=== PATIENT | male | born 1945 | race Caucasian/White ===

== ENCOUNTER 2016-12-13 16:22 | Emergency (ER) | payer OTHER ==
[2016-12-13 16:32] VITALS: RESP 16
[2016-12-13] MEDS ORDERED: NS 1,000 ML IV ONE (16:42)
[2016-12-13] MEDS ORDERED: HYDROmorphONE/DILAUDID 1 MG/ML SYR IVP ONE (16:42)
--- NOTE | 2016-12-13 16:48 | EDPHY ---
H & P Stated Complaint: mechanical fall from standing onto right lower back/flank, pleuritic pain HPI/ROS: Chief complaint: Fall with right-sided back injury History of present illness: This is a 71-year-old male who presents to the emergency department for evaluation after sustaining a mechanical fall injuring the right side of his back. Patient was helping his son work on a deck when he stepped into a hole and fell backwards striking his right midback against a concrete block. He describes severe pain on the right side of the back, worse with touching the region, moving and taking a deep breath. Patient denies associated signs or symptoms including no open wounds. He denies other associated signs or symptoms including no report of trauma to other parts of the body including the head, neck, any trauma along the spine, abdomen or extremities. Review of systems: A 10 point review of systems was obtained and other than described above was negative - Personal History Current Tetanus/Diphtheria Vaccine: Unsure Current Tetanus Diphtheria and Acellular Pertussis (TDAP): Unsure - Medical/Surgical History Hx Asthma: No Hx Chronic Respiratory Disease: No Hx Diabetes: Yes Hx Cardiac Disease: No Hx Renal Disease: No Hx Cirrhosis: No Hx Alcoholism: No Hx HIV/AIDS: No Hx Splenectomy or Spleen Trauma: No Other PMH: diabetic - Social History Smoking Status: Never smoked - Physical Exam Exam: General Appearance: Alert, appears uncomfortable Eyes: PERRLA Respiratory: Lungs clear to auscultation bilaterally Cardiac: Regular rate and rhythm. Gastrointestinal: Bowel sounds normal. Abdomen soft, nondistended, nontender. Neurological: Alert and oriented x4. Strength and sensation intact and symmetrical. Skin: No lesions noted consistent with acute trauma Musculoskeletal: Head is normocephalic, atraumatic. The spine is nontender to palpation along its entire length. No crepitus, bony deformity or step-off. There is tenderness along the right, posterior lower chest wall and right flank region. Patient moving all extremities without difficulty. Constitutional: Initial Vital Signs Temperature (C) 36.4 C 12/13/16 16:30 Heart Rate 78 12/13/16 16:30 Respiratory Rate 16 12/13/16 16:30 Blood Pressure 174/93 H 12/13/16 16:30 O2 Sat (%) 94 12/13/16 16:30 O2 Delivery Mode Room Air Allergies/Adverse Reactions: No Known Allergies Allergy (Unverified 12/13/16 16:30) Home Medications: Medication Instructions Recorded Actos 12/13/16 Hydrocodone/APAP [Peterman 1 tab PO Q6H #8 tab 12/13/16 (*)] Metformin HCl 12/13/16 Medical Decision Making - Diagnostics Imaging Results: Imaging Impressions Abdomen CT 12/13/16 16:42 Impression: Nothing acute. Findings and recommendations discussed with MALU Rivera at 1738 hour, 2016. Final report concurs with initial preliminary interpretation. Chest X-Ray 12/13/16 16:42 Impression: Diffuse interstitial thickening throughout both lungs. Mild cardiac enlargement.. Imaging: Discussed imaging studies w/ call center recruiter Radiologist, I viewed and interpreted images myself ED Course/Re-evaluation: Patient is discussed with my secondary supervising physician Dr. Winston Morelos. Patient presents to the emergency department after sustaining a mechanical trip and fall striking the right back of his chest wall and right flank region. Patient is nontoxic. Vital signs are stable. He is not on blood thinners. Chest x-ray and CT scan of the abdomen pelvis are negative. Likely a soft tissue injury. Patient will be discharged home and home care is discussed including pain management. He is further asked with hold his metformin given the IV contrast he received today for the next 2 days. He is follow up with his primary care doctor for recheck. Return precautions are given. Differential Diagnosis: Included but not limited to contusion, hematoma, bony fracture, intrathoracic injury including pneumo or hemothorax, retroperitoneal injury, intra-abdominal injury - Data Points Laboratory Results: 12/13/16 12/13/16 17:50 16:51 POC Hgb 15.6 gm/dL gm/dL (14.5-17.3) POC Hct 46 % % (42.8-50.6) POC Sodium 141 mEq/L mEq/L (134-144) POC Potassium 4.0 mEq/L mEq/L (3.3-5.0) POC Chloride 99 mEq/L mEq/L (96-108) POC BUN 28 mg/dL H mg/dL (7-23) POC Creatinine 1.0 mg/dL mg/dL (0.8-1.5) POC Glucose 163 mg/dL H mg/dL (70-100) Urine Color YELLOW Urine Appearance CLEAR Urine pH 6.0 (5.0-7.5) Ur Specific [place] 1.029 (1.002-1.030) Urine Protein NEGATIVE (NEGATIVE) Urine Ketones NEGATIVE (NEGATIVE) Urine Blood NEGATIVE (NEGATIVE) Urine Nitrate NEGATIVE (NEGATIVE) Urine Bilirubin NEGATIVE (NEGATIVE) Urine Urobilinogen NEGATIVE EU EU (0.2-1.0) Ur Leukocyte Esterase NEGATIVE (NEGATIVE) Urine Glucose NEGATIVE (NEGATIVE) Medications Given: Discontinued Medications Hydromorphone HCl (Dilaudid) 0.5 mg IVP EDNOW ONE Stop: 12/13/16 16:43 Last Admin: 12/13/16 17:03 Dose: 0.5 mg Sodium Chloride (Ns) 1,000 mls @ 0 mls/hr IV ONCE ONE PRN Reason: Wide Open Stop: 12/13/16 16:43 Last Admin: 12/13/16 17:31 Dose: 1,000 mls Point of Care Test Results: 12/13/16 16:51 POC Sodium 141 POC Potassium 4.0 POC Chloride 99 POC BUN 28 H POC Creatinine 1.0 POC Glucose 163 H Departure - Departure Disposition: Home, Routine, Self-Care Clinical Impression: Contusion, flank Qualifiers: Encounter type: initial encounter Qualified Code(s): S30.1XXA - Contusion of abdominal wall, initial encounter Condition: Good Instructions: Contusion in Adults (ED) Additional Instructions: Follow-up with your primary care doctor in 1-2 days for recheck If symptoms worsen or new symptoms develop return to the emergency room for recheck You have been prescribed [Peterman] for pain. [Peterman] contains Tylenol, do not take extra Tylenol/acetaminophen/Apap with it. It is sedating. Take a stool softener with the narcotics such as Colace or MiraLax Do not take your metformin until Saturday night because of the IV contrast you received Referrals: SAMMIE CRISTINA [Other] - As per Instructions Stand Alone Forms: Airline Excuse Prescriptions: Hydrocodone/APAP 5/325 [Peterman 5/325 (*)] 1 tab PO Q6H #8 tab
[2016-12-13] MEDS ORDERED: IOPAMIDOL (ISOVUE-300) 100 ML BTL ONE (17:10)
[2016-12-13 18:01] LABS: COLOR YELLOW; LEUKOCYTE ESTERASE,URINE NEGATIVE (NEGATIVE); NITRITE,URINE NEGATIVE (NEGATIVE)
[2016-12-13 18:24] VITALS: BP 142/78; PULSE 77; TEMP 97.3; O2SAT 95
== END 2016-12-13 18:24 | disposition home or self-care (01) ==
DX: S30.1XXA Contusion of abdominal wall, initial encounter (principal); E11.9 Type 2 diabetes mellitus without complications; Z79.84 Long term (current) use of oral hypoglycemic drugs; W18.39XA Other fall on same level, initial encounter
CPT/HCPCS: 82947-QW; 96374; J1170; Q9967